=== PATIENT | female | born 1990 | race Caucasian/White ===

== ENCOUNTER 2022-11-30 10:02 | Emergency (ER) | payer OTHER ==
[2022-11-30 10:12] VITALS: BP 113/74; PULSE 119; RESP 20; TEMP 100.3; BMI 25.9
[2022-11-30] MEDS ORDERED: ACETAMINOPHEN 500 MG TABLET (FP) PO ONE (12:43)
[2022-11-30] MEDS ORDERED: ACETAMINOPHEN 500 MG TABLET (FP) ONE (12:56)
[2022-11-30 14:12] LABS: URINE APPEARANCE CLEAR; URINE BILIRUBIN NEGATIVE (NEGATIVE); URINE COLOR YELLOW; URINE GLUCOSE (UA) NEGATIVE (NEGATIVE); URINE KETONE NEGATIVE (NEGATIVE); URINE LEUK ESTERASE NEGATIVE (NEGATIVE); URINE NITRITE NEGATIVE (NEGATIVE); URINE PROTEIN NEGATIVE (NEGATIVE); URINE UROBILINOGEN 0.2 mg/dL (0.2-1.0)
[2022-11-30 14:15] LABS: HCG,QUALITATIVE URINE Negative
== END 2022-11-30 14:26 | disposition home or self-care (01) ==
LOC: JER 10:02 → JERFT 10:02
DX: U07.1 COVID-19 (principal)
CPT/HCPCS: 0241U-QW; 81003; 84703; 87651; 99283-25